=== PATIENT | female | born 2000 | race Caucasian/White ===

== ENCOUNTER 2023-04-15 22:22 | Emergency (ER) | payer OTHER ==
[2023-04-16 00:40] VITALS: O2SAT 100
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
[2023-04-16 01:38] LABS: Hematocrit 42.4 % (35-47); Hemoglobin 14.1 g/dL (12.0-16.0)
[2023-04-16 02:02] VITALS: BP 109/66; PULSE 58
== END 2023-04-16 02:01 | disposition home or self-care (01) ==
LOC: ED 22:22
DX: N92.0 Excessive and frequent menstruation with regular cycle (principal); Z28.310 Unvaccinated for COVID-19
CPT/HCPCS: 36415; 85014; 85018; 99282

== ENCOUNTER 2024-01-13 11:11 | Emergency (ER) | payer OTHER ==
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
[2024-01-13 11:33] VITALS: TEMP 99.6
[2024-01-13] MEDS ORDERED: BABY ASPIRIN 81 MG CHEW ONE (11:36)
[2024-01-13] MEDS ORDERED: Sodium Chloride 0.9% 1000 ML 1,000 ML ONE (11:36)
[2024-01-13] MEDS: BABY ASPIRIN 81 MG CHEW PO ONE (11:38)
[2024-01-13] MEDS: Sodium Chloride 0.9% 1000 ML 1,000 ML IV STA (11:39)
--- NOTE | 2024-01-13 11:45 | XRAY ---
Indication: Chest pain. Comparison: None Portable chest demonstrates normal heart and lungs. Bony thorax intact with minimal dextroscoliosis.
[2024-01-13 12:16] VITALS: BP 108/78; PULSE 119; RESP 17; O2SAT 96
[2024-01-13 12:35] LABS: Appearance Clear (Clear); Bacteria Few /HPF (None Seen); Bilirubin Negative (Negative); Blood Negative (Negative); Epithelial Cells Moderate /HPF (None Seen); Glucose, Urine Negative (Negative); Hyaline Casts NONE SEEN /LPF (0-2); Ketones Trace (Negative); Leukocyte Esterase Small (Negative); Nitrite Negative (Negative); Protein,Urine Dip Negative (Negative); RBC 0-2 /HPF (0-5)
[2024-01-13] MEDS ORDERED: LOPRESSOR INJECTION IV ONE (12:35)
[2024-01-13] MEDS: LOPRESSOR INJECTION IV ONE (12:38)
[2024-01-13 12:39] LABS: Absolute Neutrophil Ct (ANC) 8.54 x10^3/uL (1.4-6.9); BASOPHIL % 0.3 % (0.0-0.4); Basophil (Absolute #) 0.03 x10^3/uL (0-0.4); Eosinophil % 1.5 % (0.00-5.0); Eosinophil (Absolute #) 0.16 x10^3/uL (0-0.5); Hematocrit 41.9 % (35-47); Hemoglobin 14.4 g/dL (12.0-16.0); IMMATURE GRAN # 0.03 x10^3u/L (0.00-0.03); IMMATURE GRAN % 0.3 % (0.00-0.4); Lymphocyte (Absolute #) 1.38 x10^3/uL (1.0-4.6); Lymphocytes % 12.8 % (24.0-44.0); Mean Cell Volume 90.7 fL (78-100); Mean Corpuscular Hemoglobin 31.2 pg (26-32); Mean Corpuscular Hgb Concent. 34.4 g/dL (32-36); Mean Platelet Volume 10.2 fL (7.5-11.0); Monocyte (Absolute #) 0.62 x10^3/uL (0.0-1.3); Monocytes % 5.8 % (0.0-12.0); Neutrophil % 79.3 % (36.0-66.0); Platelet Count 355 x10^3/uL (150-450); Red Blood Count 4.62 x10^6/uL (4.1-5.4); Red Cell Distribution Width 12.4 % (11.5-14.0); White Blood Count 10.8 x10^3/uL (4.0-10.5)
[2024-01-13 12:52] LABS: Amphetamine,Urine NEGATIVE (NEGATIVE); Barbiturate,Urine NEGATIVE (NEGATIVE); Benzodiazepine,Urine NEGATIVE (NEGATIVE); Cocaine,Urine NEGATIVE (NEGATIVE); Methadone,Urine NEGATIVE (NEGATIVE); Opiate,Urine NEGATIVE (NEGATIVE); PCP,Urine NEGATIVE (NEGATIVE); THC,Urine NEGATIVE (NEGATIVE)
[2024-01-13 12:52] LABS: INFLUENZA A NEGATIVE (NEGATIVE); INFLUENZA B NEGATIVE (NEGATIVE); RESPIRATORY SYNCTIAL VIRUS NEGATIVE (NEGATIVE); SARS-CoV-2 Xpert Express NEGATIVE (NEGATIVE)
[2024-01-13 12:55] LABS: ADD URINE CULTURE? YES (NO)
[2024-01-13 13:01] LABS: ALBUMIN 4.8 g/dL (3.5-5.0); ALKALINE PHOSPHATASE 55 U/L (38-126); ANION GAP 16.3 MEQ/L (5-15); BLOOD UREA NITROGEN 8 mg/dL (7-17); CHLORIDE 106 mmol/L (98-107); Calcium 9.5 mg/dL (8.4-10.2); Carbon Dioxide 21 mmol/L (22-30); Creatinine 1 0.55 mg/dL (0.52-1.04); EST GLOMERULAR FILTRATION RATE 133.7 ML/MIN; Glucose 108 mg/dL (74-106); Potassium 3.4 mmol/L (3.5-5.1); SGOT/AST 19 U/L (14-36); SGPT/ALT 13 U/L (0-35); SODIUM 140 mmol/L (137-145); TROPONIN < 0.012 ng/mL (0.000-0.034); Total Protein 7.9 g/dL (6.3-8.2)
[2024-01-13 13:26] LABS: HCG SERUM TEST NEGATIVE (NEGATIVE)
== END 2024-01-13 13:36 | disposition home or self-care (01) ==
LOC: ED 11:11
DX: F45.9 Somatoform disorder, unspecified (principal); N39.0 Urinary tract infection, site not specified; R07.9 Chest pain, unspecified; Z28.310 Unvaccinated for COVID-19
CPT/HCPCS: 0241U; 36000; 36415; 71045; 80053; 80307; 81001; 84439; 84443; 84484; 84703; 85025; 85379; 87086; 93005; 94760; 96374; 99284; A9270-GY